=== PATIENT | male | born 1995 | race Caucasian/White ===

== ENCOUNTER 2022-08-10 17:37 | Emergency (ER) | payer BC, OTHER ==
[2022-08-10] MEDS ORDERED: Lidocaine 1% PF 5 ML VIAL ONE (17:55)
[2022-08-10] MEDS ORDERED: Boostrix 0.5 ML (Tdap) VIAL (>/=7 yrs of age) ONE (17:56)
[2022-08-10] MEDS ORDERED: Ibuprofen 200 MG TAB ONE (19:05)
== END 2022-08-10 21:07 | disposition home or self-care (01) ==
LOC: CSHERS 17:37
DX: S01.311A Laceration without foreign body of right ear, initial encounter (principal); F17.220 Nicotine dependence, chewing tobacco, uncomplicated; Z23 Encounter for immunization; X58.XXXA Exposure to other specified factors, initial encounter
CPT/HCPCS: 12013; 90471; 90715